=== PATIENT | female | born 2000 | race Caucasian/White ===

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

== ENCOUNTER 2022-10-31 12:10 | Inpatient (IN) | payer MEDICAID ==
[2022-10-31] MEDS ORDERED: Ondansetron 4 MG/2 ML SDV IVPUSH PRN (14:37)
[2022-10-31] MEDS ORDERED: Lidocaine 1% 50 ML MDV INJECT ONE (14:37)
[2022-10-31] MEDS ORDERED: Nalbuphine 10 MG/0.5 ML Syringe IVPUSH PRN (14:37)
[2022-10-31] MEDS ORDERED: Acetaminophen 325 MG Tab PO PRN ×2 (14:37→15:58)
[2022-10-31] MEDS ORDERED: Lactated Ringers 1,000 ML IV SCH (14:45)
[2022-10-31] MEDS ORDERED: Oxytocin/Lactated Ringers 10 UNIT/1,000 ML BAG IV SCH ×2 (14:45)
[2022-10-31] MEDS ORDERED: Clindamycin Phosphate in D5W 900 MG in Premix Bag 1 BAG IV SCH ×2 (15:00)
[2022-10-31 15:02] LABS: BASOPHILS ABSOLUTE AUTO 0.01 K/mm3 (0.01-0.08); BASOPHILS PERCENT AUTO 0.1 % (0.1-1.2); EOSINOPHILS ABSOLUTE AUTO 0.02 K/mm3 (0.04-0.36); EOSINOPHILS PERCENT AUTO 0.2 (0.7-5.8); HEMATOCRIT 36.2 % (34.1-44.9); HEMOGLOBIN 11.7 gm/dl (11.2-15.7); IMMATURE GRAN ABSOLUTE AUTO 0.02 K/mm3 (0.00-0.10); IMMATURE GRAN PERCENT AUTO 0.2 % (<=1.0); LYMPHOCYTES ABSOLUTE AUTO 1.76 K/mm3 (1.18-3.74); LYMPHOCYTES PERCENT AUTO 17.4 % (19.3-51.7); MEAN CORPUSCULAR HEMOGLOBIN 25.8 pg (25.6-32.2); MEAN CORPUSCULAR HGB CONC 32.3 g/dl (32.2-35.5); MEAN CORPUSCULAR VOLUME 79.9 fl (79.4-94.8); MEAN PLATELET VOLUME 11.8 fl (9.4-12.3); MONOCYTES ABSOLUTE AUTO 0.53 K/mm3 (0.24-0.36); MONOCYTES PERCENT AUTO 5.2 % (4.7-12.5); NEUTROPHILS ABSOLUTE AUTO 7.77 K/mm3 (1.56-6.13); NEUTROPHILS PERCENT AUTO 76.9 % (34.0-71.1); PLATELET COUNT,PLT 177 K/mm3 (182-369); RED BLOOD CELL COUNT 4.53 M/mm3 (3.98-5.22); WHITE BLOOD CELL COUNT,WBC 10.11 K/mm3 (3.98-10.04)
[2022-10-31] MEDS ORDERED: Oxytocin 10 Units/1 ML SDV IM ONE (15:30)
[2022-10-31] MEDS ORDERED: Docusate Sodium 100 MG Cap PO PRN (15:58)
[2022-10-31] MEDS ORDERED: Benzocaine/Menthol 20%-0.5% Spray 78 GM Cannister TOP PRN (15:58)
[2022-10-31] MEDS ORDERED: Acetaminophen/oxyCODONE 325-5 MG Tab PO PRN ×2 (15:58)
[2022-10-31] MEDS: Ibuprofen 600 MG Tab PO PRN ×2 (16:05→23:43)
[2022-10-31] MEDS: Witch Hazel Medicated Pads 40/Jar TOP PRN (17:53)
[2022-10-31] MEDS ORDERED: Sodium Chloride 0.9% 10 ML Syringe FLUSH SCH (21:00)
[2022-11-01] MEDS: Ibuprofen 600 MG Tab PO PRN ×2 (08:50→19:18)
[2022-11-02] MEDS: Witch Hazel Medicated Pads 40/Jar TOP PRN (09:30)
== END 2022-11-02 16:45 | disposition home or self-care (01) | DRG 807 ==
LOC: JD.OB 12:10 → OBSVTOIN 15:21 → JD.OB 15:22
PROVIDERS: ADMIT Obstetrics & Gynecology; ATTEND Obstetrics & Gynecology
PROC: 10E0XZZ Delivery of Products of Conception, External Approach (ICD-10-PCS; principal; 2022-10-31)
DX: O42.02 Full-term premature rupture of membranes, onset of labor within 24 hours of rupture (principal); O99.824 Streptococcus B carrier state complicating childbirth; O99.214 Obesity complicating childbirth; Z37.0 Single live birth; Z3A.37 37 weeks gestation of pregnancy; Z88.5 Allergy status to narcotic agent; Z91.041 Radiographic dye allergy status; Z91.040 Latex allergy status; Z90.49 Acquired absence of other specified parts of digestive tract; Z88.0 Allergy status to penicillin
CPT/HCPCS: 36415; 59025; 59409; 85025; 86592; 86850; 86900; 86901; A9270-GY; J2590; J3490; J7120